=== PATIENT | male | born 1965 | race Caucasian/White ===

== ENCOUNTER 2017-05-29 15:54 | Emergency (ER) | payer OTHER ==
[2017-05-29 16:28] VITALS: RESP 18
[2017-05-29] MEDS ORDERED: KETOROLAC 30 MG/1 ML SDV IVP ONE (16:43)
[2017-05-29] MEDS ORDERED: NS 1,000 ML IV ONE (16:43)
[2017-05-29] MEDS ORDERED: LORazepam 2 MG/ML INJ IVP ONE (16:43)
[2017-05-29] MEDS ORDERED: ONDANSETRON 4 MG/2 ML VIAL IVP ONE (16:43)
[2017-05-29] MEDS ORDERED: IOPAMIDOL (ISOVUE 370) 100 ML BTL IV ONE (16:45)
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
[2017-05-29 17:11] LABS: PLATELET COUNT 207 10^3/uL (150-400)
[2017-05-29 19:38] VITALS: BP 189/128; PULSE 73; TEMP 99.1; O2SAT 95
== END 2017-05-29 19:37 | disposition home or self-care (01) ==
PROC: 3E0337Z Introduction of Electrolytic and Water Balance Substance into Peripheral Vein, Percutaneous Approach (ICD-10-PCS; principal; 2017-05-29)
DX: S16.1XXA Strain of muscle, fascia and tendon at neck level, initial encounter (principal); I10 Essential (primary) hypertension; V89.0XXA Person injured in unspecified motor-vehicle accident, nontraffic, initial encounter; Y92.410 Unspecified street and highway as the place of occurrence of the external cause
CPT/HCPCS: 96374; J1885; J2060; J2405; Q9967